=== PATIENT | male | born 1955 | race Caucasian/White ===

== ENCOUNTER 2021-06-09 05:49 | Day surgery (SDC) | payer OTHER ==
[2021-06-06 16:11] LABS: COVID AG,FIA SOURCE NASOPHARYNGEAL
[~2021-06-09] VITALS: Ht 175.3 cm; Wt 101.8 kg
[2021-06-09] MEDS ORDERED: LIDOCAINE 4% 50 ML SOLUTION TP ONE (05:50)
[2021-06-09] MEDS ORDERED: BENZOCAINE 20% 50 MCG/SPRAY 57 GM TP ONE (05:50)
[2021-06-09] MEDS ORDERED: LIDOCAINE 2% 30 ML JELLY TP ONE (05:50)
[2021-06-09] MEDS ORDERED: ALBUTEROL SULFATE 2.5 MG/0.5 ML NEB SOLUTION NEB ONE (05:50)
[2021-06-09] MEDS ORDERED: SODIUM CHLORIDE 0.9% 1,000 ML ONE (06:21)
[2021-06-09] MEDS ORDERED: SODIUM CHLORIDE 0.9% 1,000 ML IV ONE (06:30)
[2021-06-09] MEDS ORDERED: FentaNYL CITRATE PF 100 MCG/2 ML VIAL ONE (07:37)
[2021-06-09] MEDS ORDERED: MIDAZOLAM HCL 5 MG/ML VIAL ONE (07:37)
[2021-06-09] MEDS ORDERED: MONT10TA32 PO (07:44)
[2021-06-09] MEDS ORDERED: FLUT16H NASAL (07:44)
[2021-06-09] MEDS ORDERED: MOME13HF IH (07:44)
[2021-06-09] MEDS ORDERED: GABA-1181 PO (07:44)
[2021-06-09] MEDS ORDERED: ALBU6.7H9 IH (07:44)
[2021-06-09] MEDS ORDERED: TEMA15CA PO (07:44)
[2021-06-09] MEDS ORDERED: BUSP15TA3 PO (07:44)
[2021-06-09] MEDS ORDERED: FAMO40TA7 PO (07:44)
[2021-06-09] MEDS ORDERED: ASPI-1522 PO (07:44)
[2021-06-09] MEDS ORDERED: PRAV40TA4 PO (07:44)
[2021-06-09] MEDS ORDERED: CHOL200074 PO (07:44)
[2021-06-09] MEDS ORDERED: FISH1 PO (07:44)
[2021-06-09] MEDS ORDERED: TRIA15CR49 TP (07:44)
[2021-06-09] MEDS ORDERED: CARV3.1231 PO (07:44)
[2021-06-09] MEDS ORDERED: MethylPREDNISolone SOD SUCC 125 MG/2 ML VIAL IVP ONE (09:00)
[2021-06-09] MEDS ORDERED: MethylPREDNISolone SOD SUCC 125 MG/2 ML VIAL ONE (09:04)
[2021-06-09] MEDS ORDERED: OXYGEN THERAPY IH SCH (20:00)
== END 2021-06-09 10:30 | disposition home or self-care (01) ==
LOC: SURGERY 05:49
PROVIDERS: ATTEND Internal Medicine Critical Care Medicine
DX: J38.4 Edema of larynx (principal); J44.9 Chronic obstructive pulmonary disease, unspecified; B37.0 Candidal stomatitis; Z90.49 Acquired absence of other specified parts of digestive tract; Z98.890 Other specified postprocedural states; Z79.82 Long term (current) use of aspirin; Z79.899 Other long term (current) drug therapy
CPT/HCPCS: 31623; 31624; 71045; 87015; 87070; 87101; 87205; 87206; 87220; 87426; 88108; 88184; 88185; 88312; C9803; J2250; J2930; J3010; J7030; J7613; Z7610

== ENCOUNTER 2023-02-18 06:11 | Day surgery (SDC) | payer MEDICARE, OTHER ==
[~2023-02-18] VITALS: Ht 175.3 cm; Wt 102.2 kg
[~2023-02-18 06:11] MED LIST: ALBU6.7H14 IH; ASPI-1522 PO; BUSP15TA3 PO; CARV3.1231 PO; CHOL200074 PO; FAMO40TA7 PO; FISH1 PO; FLUT16SP NASAL; GABA-1181 PO; MOME13HF11 IH; MONT-40 PO; PRAV40TA4 PO; TEMA15CA PO; TRIA15CR49 TP
[2023-02-18] MEDS ORDERED: BENZOCAINE 20% 50 MCG/SPRAY 57 GM TP ONE (06:12)
[2023-02-18] MEDS ORDERED: LIDOCAINE 2% 11 ML JELLY TP ONE (06:12)
[2023-02-18] MEDS ORDERED: LIDOCAINE 4% 50 ML SOLUTION TP ONE (06:12)
[2023-02-18] MEDS ORDERED: ALBUTEROL SULFATE 2.5 MG/0.5 ML NEB SOLUTION NEB ONE (06:12)
[2023-02-18] MEDS ORDERED: SODIUM CHLORIDE 0.9% 1,000 ML ONE (07:22)
[2023-02-18] MEDS ORDERED: FentaNYL CITRATE PF 100 MCG/2 ML VIAL ONE (08:03)
[2023-02-18] MEDS ORDERED: MIDAZOLAM HCL 2 MG/2 ML VIAL ONE (08:04)
[2023-02-18] MEDS ORDERED: SODIUM CHLORIDE 0.9% 1,000 ML IV ONE (08:30)
[2023-02-18] MEDS ORDERED: MethylPREDNISolone SOD SUCC 125 MG/2 ML VIAL ONE (09:26)
[2023-02-18] MEDS ORDERED: MethylPREDNISolone SOD SUCC 125 MG/2 ML VIAL IVP ONE (09:30)
== END 2023-02-18 11:05 | disposition home or self-care (01) ==
LOC: SURGERY 06:11
PROVIDERS: ATTEND Internal Medicine Critical Care Medicine
DX: R05.3 Chronic cough (principal); R91.1 Solitary pulmonary nodule; J98.09 Other diseases of bronchus, not elsewhere classified; J98.8 Other specified respiratory disorders; I10 Essential (primary) hypertension; Z90.49 Acquired absence of other specified parts of digestive tract; Z98.890 Other specified postprocedural states; Z79.899 Other long term (current) drug therapy
CPT/HCPCS: 31623; 88112; 87206; 87101; 87220; 87070; 31624; 71045; 87015; J3010; J2250; J2930; Q9967; J7030; J7613; Z7610